=== PATIENT | female | born 1955 | race Caucasian/White ===

== ENCOUNTER 2017-09-13 12:43 | Emergency (ER) | payer MEDICAID ==
[~2017-09-13] VITALS: Ht 170.2 cm; Wt 72.6 kg
[2017-09-13 12:48] VITALS: BP 106/71
== END 2017-09-13 13:02 | disposition home or self-care (01) ==
LOC: ER 12:48
DX: F12.929 Cannabis use, unspecified with intoxication, unspecified (principal); F41.9 Anxiety disorder, unspecified
CPT/HCPCS: A4606; Z7502; Z7610